=== PATIENT | female | born 1950 | race Caucasian/White ===

== ENCOUNTER → 2021-01-28 | Day surgery (SDC) | payer MEDICARE, BC ==
[2021-01-28 12:33] VITALS: RESP 16; TEMP 98.3
[2021-01-28 13:55] VITALS: BP 162/92; PULSE 60
--- NOTE | 2021-01-28 14:10 | USB ---
EXAMINATION TYPE: US biopsy breast VAD RT, MG diagnostic mammo RT wo CAD DATE OF EXAM: 01/28/2021 CLINICAL HISTORY: R92.8, Abnormal mammogram. Abnormal ultrasound. Bloody discharge. Recent nipple retraction. TECHNIQUE: Ultrasound guided core biopsy of right breast with clip placement and follow-up two-view mammogram. COMPARISON: Prior outside ultrasound and mammogram December 22, 2020. FINDINGS: The procedure of ultrasound guided fine-needle aspiration and/or core biopsy was explained to the patient. Benefits, alternatives, and risks were discussed. An informed consent was then obtained. The patient was placed in supine positioning for imaging and for the procedure. Preprocedure ultrasound fails to show finding seen on outside ultrasound roughly 5 weeks earlier. There is persistent prominent subareolar duct but no peripheral hypervascular oval hypoechoic 1.0 cm lesion or adjacent more irregular hypoechoic 3:00 lesion. The overlying skin was prepped and draped in usual sterile fashion. Lidocaine and used as anesthetic into the skin and subcutaneous tissue. Lidocaine with epinephrine is used as anesthetic into the deeper tissue up to area of concern in the right breast. Under ultrasound guidance, a 18-gauge needle was attempted aspiration was unsuccessful with minimal bloody return. Than a vacuum assisted biopsy gun device was used to obtain 2 core samples. Following this, a biopsy clip was left an area of concern which significantly became less prominent after sampling. The patient tolerated the procedure well without any immediate complication. The patient was kept in the radiology department for short stay after the procedure and then discharged home in stable condition. Postprocedure mammogram confirms successful deployment of clip subareolar region right breast. IMPRESSION: Successful, uncomplicated ultrasound guided core biopsy of area of concern in the right breast, full pathology results to follow. Intermediate index of suspicion noted at time of procedure. Pathology Results: Benign RIGHT BREAST, POSTERIOR NIPPLE 3:00, CORE BIOPSY: Fragmented fibrotic cyst with columnar cell hyperplasia. Recommendation Follow up mammogram of the right breast in 6 months. RADHA
== END ==
LOC: RADUSWWP 11:59
PROVIDERS: ATTEND Surgery
DX: N60.11 Diffuse cystic mastopathy of right breast (principal); R92.8 Other abnormal and inconclusive findings on diagnostic imaging of breast
CPT/HCPCS: 88305; 77065; 19083; A4648; J2001

== ENCOUNTER → 2021-01-28 | Outpatient (CLI) | payer MEDICARE, BC ==
[2021-01-28 12:20] VITALS: BP 153/98; PULSE 51; RESP 12; TEMP 98.3
--- NOTE | 2021-01-28 12:56 | P.GSHP ---
History of Present Illness H&P Date: 01/28/21 Chief Complaint: right breast abnormal ultrasoubrad Munguia is a 70 year old white female seen in consultation for Dr. Blair regarding enlargement of the right breast and firmness fresh state was mastitis. She was treated with antibiotics. The nipple was oozing at that time. The discharge was brown. She did not have any infection or trauma to her breast. She subsequently underwent a bilateral mammogram and ultrasound of the right breast. The mammogram did not reveal any specific changes of concern. The ultrasound revealed a 14 x 13 mm complicated cystic mass with mural thickening and an irregular mural nodule 6 mm in size. Ultrasound core biopsy of the mural nodule on the right was recommended. She does not take any blood thinners. Her breast is returning to normal size at this time. Caffeine: 3 cups coffee/day nicotine: none chocolate: occasional Family History: sister: breast cancer at 65 Hormonal History: menarche: 12 M1 age at first : 18, breast fed: yes menopause: 43 BCP: 2 hormones: none Surgical history: None Medical history: HTN Social History: nicotine: none alcohol: wine cooler in evening drugs: none - Constitutional Comment: hot flashes - EENT Eyes: denies blurred vision, denies pain Ears: deny: decreased hearing, tinnitus Ears, nose, mouth and throat: Denies headache, Denies sore throat - Breasts Breasts: bilateral: as per HPI - Cardiovascular Cardiovascular: Denies chest pain, Denies shortness of breath - Respiratory Respiratory: Denies cough, Denies 7 - Gastrointestinal Gastrointestinal: Denies abdominal pain, Denies diarrhea, Denies nausea, Denies vomiting - Genitourinary (Female) Genitourinary: Denies dysuria, Denies hematuria - Menstruation Menstruation: Reports postmenopausal - Musculoskeletal Comment: arthritis in knees Musculoskeletal: Reports myalgias - Integumentary Integumentary: Denies pruritus, Denies rash - Neurological Neurological: Denies numbness, Denies weakness - Psychiatric Psychiatric: Denies anxiety, Denies depression - Endocrine Endocrine: Denies fatigue, Denies weight change - Hematologic/Lymphatic Comment: none - Allergic/Immunologic Allergic/Immunologic: Reports as per HPI Past Medical History History of Any Multi-Drug Resistant Organisms: None Reported Smoking Status: Never smoker Medications and Allergies Home Medications Medication Instructions Recorded Confirmed Type Aspirin 81 mg PO DAILY 01/19/21 01/28/21 History Losartan [Cozaar] 25 mg PO DAILY 01/19/21 01/28/21 History Allergies Allergy/AdvReac Type Severity Reaction Status Date / Time No Known Allergies Allergy Verified 01/28/21 12:29 Surgical - Exam Vital Signs Temp Pulse Resp BP Pulse Ox 98.3 F 51 L 12 153/98 98 01/28/21 12:01 01/28/21 12:01 01/28/21 12:01 01/28/21 12:01 01/28/21 12:01 BMI 30.9 - General no distress - Eyes normal ocular movement - ENT normal nares - Neck trachea midline - Respiratory normal respiratory effort, clear to auscultation - Cardiovascular Rhythm: regular Heart Sounds: normal: S1, S2 - Abdomen Abdomen: soft - Integumentary normal turgor - Neurologic no disoriented, no combative - Musculoskeletal normal gait - Psychiatric oriented to time, oriented to person, oriented to place, speech is normal, memory intact Breast Exam: BRA: 36D inspection: Right nipple inversion, no left nipple inversion, bilateral grade 2/3 ptosis Palpation: Right breast: Firm mass behind the nipple areolar complex, nipple discharge, otherwise no dominant masses or nodules of concern Nipple discharge at the 3:00 duct is guaiac positive Right axilla: No adenopathy of concern Left breast: Multi-positional exam fibrocystic changes no dominant masses or n odules of concern Left axilla: No adenopathy of concern Results Mammogram and ultrasound reviewed with Dr. Heaton, area of concern and right breast to undergo biopsy Assessment and Plan Assessment: Impression: 1. Hypertension 2. Recent swelling of the right breast with ecchymosis and fullness and nipple inversion, ecchymosis has resolved fullness has improved, abnormal right breast ultrasound 3. Patient does not have any history of any trauma of the breast however the ultrasound is suspicious for hematoma Plan: 1. Right breast ultrasound-guided core biopsy 2. Follow-up after right breast ultrasound core biopsy Cc: Dr. Blair
== END ==
LOC: WWCWWP 11:56
PROVIDERS: ATTEND Surgery
DX: Z53.9 Procedure and treatment not carried out, unspecified reason (principal)

== ENCOUNTER → 2021-05-07 | Outpatient (CLI) | payer MEDICARE, BC ==
[2021-05-07 15:49] VITALS: BP 160/89; PULSE 53; RESP 16; TEMP 98.3
--- NOTE | 2021-05-07 16:03 | P.PN ---
Subjective Progress Note Date: 05/07/21 Principal diagnosis: right nipple inversion Nilda is a 70 year old white female seen in consultation for Dr. Blair regarding enlargement of the right breast and firmness fresh state was mastitis. She was treated with antibiotics. The nipple was oozing at that time. The discharge was brown. She did not have any infection or trauma to her breast. She subsequently underwent a bilateral mammogram and ultrasound of the right breast. The mammogram did not reveal any specific changes of concern. The ultrasound revealed a 14 x 13 mm complicated cystic mass with mural thickening and an irregular mural nodule 6 mm in size. Ultrasound core biopsy of the mural nodule on the right was recommended. She does not take any blood thinners. Her breast is returning to normal size at this time. She had an ultrasound core biopsy of the right breast on [id number]. Pathology revealed fragments of fibrotic cyst and columnar cell hyperplasia. The patient had been exposed to COVID and therefore did not come for results at that time. Her case was reviewed in person with radiologist Dr. Aparicio. He felt that the area of concern had been adequately sampled. The patient is not concerned about any new lumps masses or nodules in either breast. She is not complaining of any nipple discharge. The right nipple complex continues to be inverted but seems to be less so than in the past. It has only been inverted since the biopsy as per the patient. Caffeine: 3 cups coffee/day nicotine: none chocolate: occasional Family History: sister: breast cancer at 65 Hormonal History: menarche: 12 M1 age at first : 18, breast fed: yes menopause: 43 BCP: 2 hormones: none Surgical history: None Medical history: HTN Social History: nicotine: none alcohol: wine cooler in evening drugs: none - Constitutional Comment: hot flashes - EENT Eyes: denies blurred vision, denies pain Ears: deny: decreased hearing, tinnitus Ears, nose, mouth and throat: Denies headache, Denies sore throat - Breasts Breasts: bilateral: as per HPI - Cardiovascular Cardiovascular: Denies chest pain, Denies shortness of breath - Respiratory Respiratory: Denies cough - Gastrointestinal Gastrointestinal: Denies abdominal pain, Denies diarrhea, Denies nausea, Denies vomiting - Genitourinary (Female) Genitourinary: Denies dysuria, Denies hematuria - Menstruation Menstruation: Reports postmenopausal - Musculoskeletal Comment: arthritis in knees Musculoskeletal: Reports myalgias - Integumentary Integumentary: Denies pruritus, Denies rash - Neurological Neurological: Denies numbness, Denies weakness - Psychiatric Psychiatric: Denies anxiety, Denies depression - Endocrine Endocrine: Denies fatigue, Denies weight change - Hematologic/Lymphatic Comment: none - Allergic/Immunologic Allergic/Immunologic: Reports as per HPI Objective - Vital Signs Vital signs: Vital Signs Temp 98.3 F 05/07/21 15:44 Pulse 53 L 05/07/21 15:44 Resp 16 05/07/21 15:44 BP 160/89 05/07/21 15:44 Pulse Ox Intake & Output 05/06/21 05/07/21 05/07/21 18:59 06:59 18:59 Weight 79.379 kg - Exam BMI 30 - Constitutional General appearance: Present: average body habitus - EENT Eyes: Present: EOMI ENT: Present: hearing grossly normal - Neck Neck: Present: normal ROM - Respiratory Respiratory: bilateral: CTA - Cardiovascular Rhythm: regular Heart sounds: normal: S1, S2 - Gastrointestinal General gastrointestinal: Present: soft - Integumentary Integumentary: Present: normal turgor - Musculoskeletal Musculoskeletal: Present: gait normal - Psychiatric Psychiatric: Present: A&O x's 3, appropriate affect, intact judgment & insight - Additional findings Additional findings: Breast Exam: BRA: 38C inspection: Right nipple inversion, bilateral grade 2/3 ptosis Palpation: Right breast: Multiple positional exam fibrocystic changes right nipple inversion appears to be improved; no further nipple discharge, no firm mass behind the nipple areolar complex which is there was noted on prior examination; there does appear to be a slight fullness pulling the nipple and Right axilla: No adenopathy of concern Left breast: Multi-positional exam fibrocystic changes no dominant masses or nodules of concern Left axilla: No adenopathy of concern Assessment and Plan Assessment: Impression: 1. Hypertension 2. Swelling of the right breast with ecchymosis and fullness nipple inversion which has improved ecchymosis has completely resolved and fullness behind the right nipple areolar complex has improved, core biopsy was benign. 3. Patient does not relate any history of trauma but breast however the ultrasound was suspicious for hematoma Plan: Repeat right breast ultrasound in 2 months with physician exam at that time The patient notes any changes will call sooner Cc: Dr. Blair
== END | disposition home or self-care (01) ==
LOC: WWCWWP 15:37
PROVIDERS: ATTEND Surgery
DX: Z53.9 Procedure and treatment not carried out, unspecified reason (principal)

== ENCOUNTER → 2021-08-02 | Outpatient (CLI) | payer MEDICARE, BC ==
--- NOTE | 2021-08-02 13:42 | MM ---
Reason for exam: follow-up at short interval from prior study. Last mammogram was performed 6 months ago. History: Family history of breast cancer in sister at age 63. Benign US biopsy breast VAD RT of the right breast, January 28, 2021. Physical Findings: A clinical breast exam by your physician is recommended on an annual basis and results should be correlated with mammographic findings. MG 3D Diag Mammo W/Cad RT CC and MLO view(s) were taken of the right breast. Prior study comparison: January 28, 2021, right breast MG diagnostic mammo RT wo CAD. There are scattered fibroglandular densities. Previous ultrasound biopsy in the right breast, There is no discrete abnormality. No significant new findings when compared with previous films. Results were given to the patient verbally at the time of the exam. ASSESSMENT: Incomplete: need additional imaging evaluation, BI-RAD 0 RECOMMENDATION: Ultrasound of the right breast.
--- NOTE | 2021-08-02 13:44 | USB ---
Reason for exam: follow-up at short interval from prior study. History: Family history of breast cancer in sister at age 63. Benign US biopsy breast VAD RT of the right breast, January 28, 2021. Physical Findings: A clinical breast exam by your physician is recommended on an annual basis and results should be correlated with mammographic findings. US Breast Limited RT Left limited breast ultrasound including focal area of concern, retroareolar and axilla demonstrates no masses seen, mildly prominent duct. 2-3 o'clock scanned and posterior nipple. Results were given to the patient verbally at the time of the exam. ASSESSMENT: Benign, BI-RAD 2 RECOMMENDATION: Routine screening mammogram of both breasts in 5 months. Back on schedule for December 2021.
== END | disposition home or self-care (01) ==
LOC: RADMAMWWP 12:49
PROVIDERS: ATTEND Surgery
DX: R92.8 Other abnormal and inconclusive findings on diagnostic imaging of breast (principal)
CPT/HCPCS: 77065; 76642; G0279; 77061

== ENCOUNTER → 2021-08-06 | Outpatient (CLI) | payer MEDICARE, BC ==
[2021-08-06 14:46] VITALS: BP 127/84; PULSE 64; RESP 12
--- NOTE | 2021-08-06 15:13 | P.PN ---
Subjective Progress Note Date: 08/06/21 Principal diagnosis: status post right breast core biopsy on 01-28-21; follow up right nipple inversion Nilda is a 71 year old white female seen in consultation for Dr. Blair regarding enlargement of the right breast and firmness fresh state was mastitis. She was treated with antibiotics. The nipple was oozing at that time. The discharge was brown. She did not have any infection or trauma to her breast. She subsequently underwent a bilateral mammogram and ultrasound of the right breast. The mammogram did not reveal any specific changes of concern. The ultrasound revealed a 14 x 13 mm complicated cystic mass with mural thickening and an irregular mural nodule 6 mm in size. Ultrasound core biopsy of the mural nodule on the right was recommended. She does not take any blood thinners. Her breast is returning to normal size at this time. She had an ultrasound core biopsy of the right breast on [id number]. Pathology revealed fragments of fibrotic cyst and columnar cell hyperplasia. The patient had been exposed to COVID and therefore did not come for results at that time. Her case was reviewed in person with radiologist Dr. Aparicio. He felt that the area of concern had been adequately sampled. 08-06-10 The patient is not concerned about any new lumps masses or nodules in either breast. She is not complaining of any nipple discharge. The right nipple complex continues to be inverted but seems to be less so than in the past. It has only been inverted since the biopsy as per the patient. She underwent a right breast mammogram and ultrasound on to the results were benign BIRADS 2 with follow-up screening of both breasts in 5 months. Caffeine: 2 cups coffee/day nicotine: none chocolate: occasional Family History: sister: breast cancer at 65 Hormonal History: menarche: 12 M1 age at first : 18, breast fed: yes menopause: 43 BCP: 2 hormones: none Surgical history: None Medical history: HTN Social History: nicotine: none alcohol: wine cooler in evening drugs: none - Constitutional Comment: hot flashes - EENT Eyes: denies blurred vision, denies pain Ears: deny: decreased hearing, tinnitus Ears, nose, mouth and throat: Denies headache, Denies sore throat - Breasts Breasts: bilateral: as per HPI - Cardiovascular Cardiovascular: Denies chest pain, Denies shortness of breath - Respiratory Respiratory: Denies cough - Gastrointestinal Gastrointestinal: Denies abdominal pain, Denies diarrhea, Denies nausea, Denies vomiting - Genitourinary (Female) Genitourinary: Denies dysuria, Denies hematuria - Menstruation Menstruation: Reports postmenopausal - Musculoskeletal Comment: arthritis in knees Musculoskeletal: Reports myalgias - Integumentary Integumentary: Denies pruritus, Denies rash - Neurological Neurological: Denies numbness, Denies weakness - Psychiatric Psychiatric: Denies anxiety, Denies depression - Endocrine Endocrine: Denies fatigue, Denies weight change - Hematologic/Lymphatic Comment: none - Allergic/Immunologic Allergic/Immunologic: Reports as per HPI Objective - Vital Signs Vital signs: Vital Signs Temp Pulse 64 08/06/21 14:42 Resp 12 08/06/21 14:42 BP 127/84 08/06/21 14:42 Pulse Ox 97 08/06/21 14:42 Intake & Output 08/05/21 08/06/21 08/06/21 18:59 06:59 18:59 Weight 79.379 kg - Exam BMI: 30 - Constitutional General appearance: Present: cooperative - EENT Eyes: Present: EOMI ENT: Present: hearing grossly normal - Neck Neck: Present: normal ROM - Respiratory Respiratory: bilateral: CTA - Cardiovascular Heart sounds: normal: S1, S2 - Integumentary Integumentary: Present: normal turgor - Musculoskeletal Musculoskeletal: Present: gait normal - Psychiatric Psychiatric: Present: A&O x's 3, appropriate affect, intact judgment & insight - Additional findings Additional findings: Breast exam: BRA: 38C inspection: Chronically inverted right nipple, bilateral grade 2/3 ptosis Palpation: Right breast: Multi-positional exam fibrocystic changes no dominant masses or nodules of concern Right axilla: No adenopathy of concern Left breast: Multi-positional exam fibrocystic changes no dominant masses or nodules of concern Left axilla: No adenopathy of concern Assessment and Plan Assessment: Impression: Fibrocystic breast changes A dominant masses or nodules of concern Plan: Bilateral mammogram December with physician exam at that time Patient to call sooner if any questions or concerns CC: Dr. Blair
== END | disposition home or self-care (01) ==
LOC: WWCWWP 14:34
PROVIDERS: ATTEND Surgery
DX: Z53.9 Procedure and treatment not carried out, unspecified reason (principal)

== ENCOUNTER → 2021-12-23 | Outpatient (CLI) | payer MEDICARE, BC ==
--- NOTE | 2021-12-31 17:26 | MM ---
Reason for Exam: Screening (asymptomatic). Last screening mammogram was performed 12 month(s) ago. Patient History: Menarche at age 11. First Full-Term at age 18. Postmenopausal. 01/28/2021, Benign Core Biopsy on the right side. Sister had breast cancer, age 63. Risk Values: [place]rina 5 year model risk: 4.0%. NCI Lifetime model risk: 9.6%. Prior Study Comparison: 04/22/2019 Bilateral MG screening mammo w CAD - 2, [facility]. 12/22/2020 Bilateral MG 3D screening mammo w/cad, [facility]. 01/28/2021 Right Diagnostic Mammogram, [facility]. 08/02/2021 Right Diagnostic Mammogram, [facility]. 08/02/2021 Right Diagnostic Ultrasound, [facility]. Tissue Density: There are scattered fibroglandular densities. Findings: Analyzed By CAD. There is no suspicious group of microcalcifications or new suspicious mass in either breast. Overall Assessment: Negative, BI-RAD 1 Management: Screening Mammogram of both breasts in 1 year. A clinical breast exam by your physician is recommended on an annual basis and results should be correlated with mammographic findings. Electronically signed and approved by: Gray Suggs DO
== END | disposition home or self-care (01) ==
LOC: RADMAMWWP 10:21
PROVIDERS: ATTEND Surgery
DX: Z12.31 Encounter for screening mammogram for malignant neoplasm of breast (principal)
CPT/HCPCS: 77063; 77067

== ENCOUNTER → 2021-12-30 | Outpatient (CLI) | payer MEDICARE, BC ==
[2021-12-30 10:15] VITALS: BP 157/81; PULSE 51; RESP 16; TEMP 97.8
--- NOTE | 2021-12-30 10:40 | P.PN ---
Subjective Progress Note Date: 12/30/21 Principal diagnosis: Fibrocystic breast changes Nilda is a 71 year old white female seen in consultation for Dr. Blair regarding enlargement of the right breast and firmness with a history of mastitis. She was treated with antibiotics. The nipple was oozing at that time . The discharge was brown. She did not have any infection or trauma to her breast. She subsequently underwent a bilateral mammogram and ultrasound of the right breast. The mammogram did not reveal any specific changes of concern. The ultrasound revealed a 14 x 13 mm complicated cystic mass with mural thickening and an irregular mural nodule 6 mm in size. Ultrasound core biopsy of the mural nodule on the right was recommended. Biopsy of this area was done on 01-28-21 which were benign. She had a bilateral mammogram on 12-23-21 the results are still pending although the mammogram have been personally reviewed. It is not complaining of any new lumps masses or nodules of concern in either breast. At this time she is not concerned about any asymmetry of her breasts, and she is not having any nipple losing on either side. Caffeine: 3 cups coffee/day nicotine: none chocolate: occasional Family History: sister: breast cancer at 65 Hormonal History: menarche: 12 M1 age at first : 18, breast fed: yes menopause: 43 BCP: 2 hormones: none Surgical history: None Medical history: HTN Social History: nicotine: none alcohol: wine cooler in evening drugs: none - Constitutional Comment: hot flashes - EENT Eyes: denies blurred vision, denies pain Ears: deny: decreased hearing, tinnitus Ears, nose, mouth and throat: Denies headache, Denies sore throat - Breasts Breasts: bilateral: as per HPI - Cardiovascular Cardiovascular: Denies chest pain, Denies shortness of breath - Respiratory Respiratory: Denies cough - Gastrointestinal Gastrointestinal: Denies abdominal pain, Denies diarrhea, Denies nausea, Denies vomiting - Genitourinary (Female) Genitourinary: Denies dysuria, Denies hematuria - Menstruation Menstruation: Reports postmenopausal - Musculoskeletal Comment: arthritis in knees Musculoskeletal: Reports myalgias - Integumentary Integumentary: Denies pruritus, Denies rash - Neurological Neurological: Denies numbness, Denies weakness - Psychiatric Psychiatric: Denies anxiety, Denies depression - Endocrine Endocrine: Denies fatigue, Denies weight change - Hematologic/Lymphatic Comment: none - Allergic/Immunologic Allergic/Immunologic: Reports as per HPI Past Medical History History of Any Multi-Drug Resistant Organisms: None Reported Smoking Status: Never smoker Medications and Allergies Home Medications Medication Instructions Recorded Confirmed Type Aspirin 81 mg PO DAILY 01/19/21 01/28/21 History Losartan [Cozaar] 25 mg PO DAILY 01/19/21 01/28/21 History Allergies Allergy/AdvReac Type Severity Reaction Status Date / Time No Known Allergies Allergy Verified 01/28/21 12:29 Objective - Vital Signs Vital signs: Vital Signs Temp 97.8 F 12/30/21 10:13 Pulse 51 L 12/30/21 10:13 Resp 16 12/30/21 10:13 BP 157/81 12/30/21 10:13 Pulse Ox 97 12/30/21 10:13 FiO2 Intake & Output 12/29/21 12/30/21 12/30/21 18:59 06:59 18:59 Weight 79.379 kg - Exam BMI: 30 - Constitutional General appearance: Present: cooperative - EENT Eyes: Present: edentulous ENT: Present: hearing grossly normal - Neck Neck: Present: normal ROM - Respiratory Respiratory: bilateral: CTA - Cardiovascular Rhythm: regular Heart sounds: normal: S1, S2 - Gastrointestinal General gastrointestinal: Present: soft - Integumentary Integumentary: Present: normal turgor - Musculoskeletal Musculoskeletal: Present: gait normal - Psychiatric Psychiatric: Present: A&O x's 3, appropriate affect, intact judgment & insight - Additional findings Additional findings: Breaset Exam: BRA: 36C Inspection: Inversion of the right nipple which has been like that since she had core biopsy of the right side, bilateral grade 2/3 ptosis Palpation: Right breast: Multiple positional exam fibrocystic changes no dominant masses or nodules of concern, mild inversion of the right nipple which has been present since core biopsy of the right breast Right axilla: No adenopathy of concern Left breast: Multi-positional exam fibrocystic changes no dominant masses or nodules of concern Left axilla: No adenopathy of concern Assessment and Plan Assessment: Impression: Fibrocystic breast changes Chronic inversion of the right nipple following right breast biopsy Plan: Awaiting official mammogram interpretation by radiology, final recommendation to follow this Cc: Milan Blair NP
== END | disposition home or self-care (01) ==
LOC: WWCWWP 10:04
PROVIDERS: ATTEND Surgery
DX: Z53.9 Procedure and treatment not carried out, unspecified reason (principal)

== ENCOUNTER → 2023-01-16 | Outpatient (CLI) | payer MEDICARE, BC ==
[2023-01-16 14:45] LABS: INR 0.9 (<1.2); Partial Thromboplastin Time 24.2 sec (22.0-30.0)
[2023-01-16 20:16] LABS: Appearance,Urine Clear (Clear); Bilirubin,Urine Negative (Negative); Blood,Urine Negative (Negative); Color,Urine Yellow (Yellow); Ketones,Urine Negative (Negative); Nitrite,Urine Negative (Negative); PH, Urine 6.5; Specific Gravity,Urine 1.014 (1.001-1.030); Urobilinogen,Urine 0.2 E.U./DL
[2023-01-16 20:26] LABS: Bacteria,Urine None Seen (None Seen)
[2023-01-16 21:30] LABS: ALT 27 U/L (8-44); AST 17 U/L (13-35); Albumin 4.1 d/dL (3.8-4.9); Albumin/Globulin Ratio 1.95 Ratio (1.60-3.17); Alkaline Phosphatase 90 U/L (41-126); BUN/Creat Ratio 22.75 Ratio (12.00-20.00); Blood Urea Nitrogen 18.2 mg/dL (9.0-27.0); Calcium 12.4 mg/dL (8.7-10.3); Carbon Dioxide 29.4 mmol/L (21.6-31.8); Chloride 108 mmol/L (96-109); Globulin 2.1 d/dL (1.6-3.3); Glucose 126 mg/dL (70-110); Potassium 4.5 mmol/L (3.5-5.5); Sodium 145 mmol/L (135-145); Total Bilirubin 0.3 mg/dL (0.3-1.2); Total Protein 6.2 d/dL (6.2-8.2)
[2023-01-16 22:26] LABS: HCT 44.4 % (37.2-46.3); HGB 13.7 d/dL (12.0-15.0); MCH 28.7 pg (27.0-32.0); MCHC 30.9 d/dL (32.0-37.0); MCV 92.9 FL (80.0-97.0); Mean Platelet Volume 12.3 FL (9.5-12.2); NRBC Per 100 WBC 0 X 10*3/uL (0.00-0.01); Platelet Count 300 X 10*3/uL (140-440); RBC 4.78 X 10*6/uL (4.10-5.20); RDW 13.4 % (11.5-14.5); WBC 7.03 X 10*3/uL (4.50-10.00)
== END | disposition home or self-care (01) ==
LOC: LABPAT 09:40
PROVIDERS: ATTEND Orthopaedic Surgery
DX: Z01.812 Encounter for preprocedural laboratory examination (principal); M17.0 Bilateral primary osteoarthritis of knee; I51.7 Cardiomegaly; R94.31 Abnormal electrocardiogram [ECG] [EKG]
CPT/HCPCS: 80053; 81001; 85027; 85610; 85730; 87070; 93005

== ENCOUNTER 2023-02-08 10:40 | Day surgery (SDC) | payer MEDICARE, BC ==
[~2023-02-08 10:40] MED LIST: ACETAMINOPHEN TAB 500 MG TAB PO PRN; DEXAMETHASONE SOD PHOSPHATE 10 MG/ML 1 ML VIAL IV PRN; DEXAMETHASONE SOD PHOSPHATE 4 MG/ML 1 ML VIAL IV ONE; DOCUSATE 100 MG CAP PO PRN; FAMOTIDINE 20 MG/2 ML VIAL IVP PRN; HYDROmorphone 0.5 MG/0.5 ML SYRINGE IVP PRN; KETOROLAC 15 MG/ML 1 ML VIAL IVP PRN; LIDOCAINE 1% (10MG/ML) FOR IV START INTRADERMA PRN; MIDAZOLAM 2 MG/2 ML VIAL IV PRN; ONDANSETRON 4 MG/2 ML VIAL IVP ONE; ONDANSETRON 4 MG/2 ML VIAL IVP PRN; ROPIVACAINE/EPI/CLONIDINE/KET 50 ML SYRINGE MISCELLANE PRN; TRANEXAMIC 1,000 MG/100ML-NACL 1,000 MG in SALINE 1 100ML.BAG IV PRN; TRANEXAMIC 1,000 MG/100ML-NACL 1,000 MG in SALINE 1 100ML.BAG IVPB PRN; oxyCODONE ER 10 MG TAB.ER.12H PO PRN
[2023-02-08] MEDS: LACTATED RINGERS 1,000 ML IV SCH ×3 (12:19→16:59)
--- NOTE | 2023-02-08 12:22 | P.ANPRN ---
Procedure Note - Anesthesia - Nerve Block Performed Right Adductor Canal Single Time Out Performed: Yes (115) Date of Procedure: 02/08/23 Procedure Start Time: 12:00 Procedure Stop Time: 12:10 Location of Patient: PreOp Indication: Acute Post-Operative Pain, Requested by Surgeon Sedation Type: Sedate with meaningful contact maintained Preparation: Sterile Prep Position: Supine Catheter: None Needle Types: Pajunk Needle Gauge: 21 Ultrasound used to visualize needle placement: Yes Ultrasound used to observe medication spread: Yes Injectate: 0.5% Ropivacaine (see comment for volume) (21 mL of block solution containing 10 ML of 0.5% ropivacaine mixed with 10 ML of preservative-free normal saline, and 4 MG of dexamethasone) Blood Aspirated: No Pain Paresthesia on Injection Noted: No Resistance on Injection: Normal Image Stored and Saved: Yes Events: Uneventful and Well Tolerated Right iPack Single Time Out Performed: Yes (115) Date of Procedure: 02/08/23 Procedure Start Time: 12:00 Procedure Stop Time: 12:10 Location of Patient: PreOp Indication: Acute Post-Operative Pain, Requested by Surgeon Sedation Type: Sedate with meaningful contact maintained Preparation: Sterile Prep Position: Supine Catheter: None Needle Types: Pajunk Needle Gauge: 21 Ultrasound used to visualize needle placement: Yes Ultrasound used to observe medication spread: Yes Injectate: 0.5% Ropivacaine (see comment for volume) (20 mL of block solution containing 10 ML of 0.5% ropivacaine mixed with 10 ML of preservative-free normal saline) Blood Aspirated: No Pain Paresthesia on Injection Noted: No Resistance on Injection: Normal Image Stored and Saved: Yes Events: Uneventful and Well Tolerated
[2023-02-08] MEDS ORDERED: LACTATED RINGERS 1,000 ML IV ONE (14:20)
--- NOTE | 2023-02-08 14:27 | P.OP ---
Date of Procedure: 02/08/23 Preoperative Diagnosis: 1. Severe right knee osteoarthritis Postoperative Diagnosis: Same Procedure(s) Performed: 1. Right total knee arthroplasty 2. Computer assisted musculoskeletal navigation using CT/MRI images Implants: 1. Vinay Triathlon CR Femur Size #4 2. Kuna Triathlon Tyler Tibial Base Size #4 3. Kuna Triathlon CS poly Size #4, 9-mm 4. Kuna Triathlon all poly patella, Size #29 Anesthesia: regional, spinal Surgeon: George Saavedra Cleaner Wall #1: Bette Talbert Estimated Blood Loss (ml): 100 IV fluids (ml): 850 Pathology: none sent Condition: stable Disposition: PACU Indications for Procedure: I met with the patient preoperatively in the office setting and discussed treatment of their symptomatic knee arthritis. They failed a long course of nonsurgical treatment and elected to proceed with an elective total knee replacement. I discussed the potential risks and complications at length and gave them ample time to ask questions. Risks discussed included: risks from anesthesia, superficial site surgical infection, acute and/or chronic periprosthetic joint infection, delayed wound healing, drainage, wound necrosis, instability, stiffness, stiffness requiring manipulation and/or revision surgery, damage to local blood vessels or nerves, aseptic loosening of the implants, extensor mechanism issues including disruption, patellar maltracking, avascular necrosis etc., continued or worsened knee pain, generalized dissatisfaction with surgical outcome, need for revision surgery, an inability to regain preinjury level of function, DVT, PE, other medical complications, and possibly loss of life or limb. The patient voiced their understanding that while these are the most common complications other less common complications are possible. They provided both their verbal and written consent to go forward with surgery. Operative Findings: Severe tricompartmental knee osteoarthritis Description of Procedure: The patient was identified in preoperative holding and the correct operative extremity was verified and marked with a marker. I reviewed the consent form with the patient at length. All of their questions were answered. The patient was given a block by anesthesia. They were then brought back to the operating room. They were transferred onto the operating room table where a general anest hetic, preoperative antibiotics, and tranexamic acid were administered by anesthesia. A tourniquet was applied to the proximal aspect of the operative extremity. The contralateral extremity was padded under the heel and secured to the operating room table with a nonsterile blue towel and tape. The ipsilateral arm was carefully draped across the patient's chest and secured with a pillow and foam. A post was applied over the lateral aspect of the ipsilateral thigh and a bolster was placed under the ipsilateral foot. I verified that the operative extremity was stable and the knee was flexed to 90. The operative extremity was then placed in a leg daniel, nonsterile drapes were applied, and the extremity was prepped and draped sterilely in the standard sterile fashion. Prior to starting surgery timeout was performed identifying the correct patient, operative extremity, and procedure. The leg was then elevated, exsanguinated with an Esmarch bandage, and the tourniquet was inflated. An anterior midline incision was made sharply with a scalpel. Once I had dissected deep to the superficial fascial layer medial and lateral flaps were elevated. A medial parapatellar arthrotomy was created. Upon opening the knee joint there were diffuse arthritic changes in all 3 compartments. The anterior horn of the medial meniscus were sharply released and a medial release was performed around the posterior medial corner of the knee to facilitate retractor placement. The fat pad was excised with electrocautery. The patella was found to be severely arthritic and a provisional cut was made with a sagittal saw to facilitate mobilization of the extensor mechanism during the procedure. Remnants of the ACL and PCL were then excised from the notch. 4 mm pins were then placed within the incision in the medial distal femur and proximal tibia. Arrays were applied to the pins and I verified they were completely tightened. The knee was then registered with the Circadence robot and manipulations in implant position were made to balance the knee and opitmize implant position. Using the Anand robotic saw all cuts were made in accordance with our plan. After all bony fragments had been removed the cuts were verified with the planar probe. The tibia was then subluxed forward and sized. The knee was brought into flexion and a lamina razor grinder was placed to allow removal of the meniscal remnants both medially and laterally as well as posterior osteophytes. Local anesthetic was then infiltrated around the joint capsule. Trial implants were then placed within the knee. Range of motion and collateral ligament tension was then evaluated. Adjustments in implant size and position were then made accordingly. Once the knee was felt to be appropriately balanced the Anand pins were removed. The patella was then recut, sized, and punched. A trial patellar button was then placed. With the trial components in place, the patella tracked midline. The femur was then drilled and the trial component removed. The trial tibial component was then appropriately rotated, pinned, and prepared for the keel. All trial components were then removed from the knee. The knee was thoroughly i rrigated with pulsatile lavage. Cement was prepared via vacuum mixing in a bowl on the back table. I then hand pressurized cement into the femur and tibia and placed the implants beginning with the tibial base tray and poly liner, femoral component, and finally the patellar button. All extruded cement was removed including from the pin sites. Once the cement had hardened the knee was evaluated one final time with the final polyethylene liner in place. The knee had full extension and flexion and felt stable to varus and valgus stress throughout the arc of motion. The tourniquet was released and with the tourniquet down the patella tracked midline. All bleeders were controlled with electrocautery. The knee was then soaked for 3 minutes with a dilute Betadine soak. The knee was thoroughly irrigated using 3 L of sterile saline and pulsatile lavage. A deep drain was placed. The extensor mechanism was then reapproximated using pop off Vicryl sutures followed by a running barbed suture. The knee was then closed in layers with a 0 strata fix for the deep fascial layer, 2-0 strata fix for the superficial subcutaneous layer and Monocryl and Steri-Strips for the skin. A sterile dressing and drain sponge were applied. I verified that all instrument, sponge, and sharp counts were correct. The patient was then transferred off the operating room table, extubated, and brought to recovery having tolerated the procedure well. Bette Talbert PA-C was required as a skilled assistant branch operations manager due to the complexity of the procedure for patient positioning, draping, retraction, placement of hardware, and closure of wound. PLAN: The patient can weight-bear as tolerated on the operative extremity. DVT prophylaxis with aspirin 81 mg twice a day based on preoperative risk stratification. Follow-up in the office in 2 weeks for wound check and x-rays of the knee including an AP and lateral.
[2023-02-08] MEDS ORDERED: HYDROmorphone 0.5 MG/0.5 ML SYRINGE IVP PRN ×2 (14:45)
[2023-02-08] MEDS ORDERED: hydrOXYzine pamoate 25 MG CAP PO PRN (14:45)
[2023-02-08] MEDS ORDERED: NALOXONE 0.4 MG/ML 1 ML VIAL IV PRN (14:45)
--- NOTE | 2023-02-08 15:15 | XR ---
EXAMINATION TYPE: XR knee limited RT DATE OF EXAM: 02/08/2023 CLINICAL HISTORY: Postoperative evaluation Two views of the right knee are submitted. Identified are changes of total knee arthroplasty with femoral and tibial components appearing well seated. Postsurgical soft tissue changes are noted. Alignment is anatomic.
[2023-02-08] MEDS: HYDROcodone/APAP 5-325MG 1 EACH TAB PO PRN (16:55)
[2023-02-08] MEDS: ONDANSETRON 4 MG/2 ML VIAL IVP PRN (16:57)
[2023-02-08] MEDS: ASPIRIN 81 MG PO SCH (20:09)
[2023-02-08] MEDS: SENNOSIDES-DOCUSATE SODIUM 1 EACH TAB PO SCH (20:09)
--- NOTE | 2023-02-09 00:44 | P.CONS ---
History of Present Illness - Reason for Consult Consult date: 02/08/23 - History of Present Illness Patient is a 72-year-old female with a PMH of hypertension who was admitted for an elective right total knee replacement. The patient underwent the procedure earlier today and was seen postoperatively on surgical unit. She reported ongoing pain at the time of interview, rated at a 5 out of 10 of the right knee. She denies experiencing chest discomfort, shortness of breath, fever, chills, cough, abdominal pain, or diarrhea. She did report mild nausea with a single episode of vomiting earlier tonight. Review of systems: Pertinent positives and negatives as discussed in HPI, a complete review of systems was performed and all other systems are negative. Physical examination: Vital signs reviewed General: non toxic, no distress, appears at stated age, normal weight Derm: no unusual rashes/lesions, warm Head: atraumatic, normocephalic, symmetric Eyes: EOMI, no lid lag, anicteric sclera, pupils equal round reactive to light ENT: Nose and ears atraumatic Neck: No cervical lymphadenopathy, trachea midline, supple Mouth: no lip lesion, mucus membranes moist Cardiovascular: S1S2 reg, no murmur, positive dorsalis pedis pulse bilateral, no edema Lungs: CTA bilateral, no rhonchi, no rales, no accessory muscle use Abdominal: soft, nontender to palpation, no guarding Ext: muscle strength 5 out of 5 in all 4 extremities grossly except for right lower extremity postsurgically, right knee drain in place, no gross muscle atrophy, no contractures, right lower extremity distal strength 5 out of 5 Neuro: CN II-XI grossly intact, no gross focal neuro deficits Psych: Alert, oriented, appropriate affect Assessment: Chronic conditions: Hypertension Status post right total knee replacement Plan: Continue with home losartan dose Defer management of pain control and DVT prophylaxis to primary surgery service We appreciate this opportunity to be involved in this patient's care. We will follow the patient with you. For any further questions, please not hesitate to contact the [facility] inpatient team. Past Medical History Past Medical History: Hypertension, Osteoarthritis (OA) Additional Past Medical History / Comment(s): R knee fracture/casted in 2017 History of Any Multi-Drug Resistant Organisms: None Reported Past Surgical History: Orthopedic Surgery Additional Past Surgical History / Comment(s): D&C 1970 Past Anesthesia/Blood Transfusion Reactions: No Reported Reaction Smoking Status: Never smoker - Past Family History Father Family Medical History: No Reported History Mother Family Medical History: CVA/TIA, Osteoarthritis (OA) Medications and Allergies Home Medications Medication Instructions Recorded Confirmed Type Losartan [Cozaar] 25 mg PO QAM 01/19/21 02/02/23 History Multivitamins, Thera [Multivitamin 1 tab PO QAM 05/07/21 02/02/23 History (formulary)] Acetaminophen [Tylenol Extra 500 mg PO Q6H PRN 02/02/23 02/02/23 History Strength] Ibuprofen [Motrin Ib] 200 mg PO Q8H PRN 02/02/23 02/02/23 History Allergies Allergy/AdvReac Type Severity Reaction Status Date / Time No Known Allergies Allergy Verified 02/08/23 11:23 Physical Exam Vitals: Vital Signs Temp Pulse Pulse Resp BP BP Pulse Ox 02/08/23 19:09 97.6 F 58 L 18 123/77 96 02/08/23 17:48 56 L 120/69 98 02/08/23 17:33 62 127/75 99 02/08/23 17:18 57 L 149/66 98 02/08/23 17:03 60 146/76 97 02/08/23 16:48 60 157/82 97 02/08/23 16:35 68 149/89 97 02/08/23 16:00 53 L 18 144/77 97 02/08/23 15:30 60 16 128/66 97 02/08/23 15:13 56 L 16 131/66 98 02/08/23 14:59 60 16 121/66 95 02/08/23 14:54 59 L 16 113/69 95 02/08/23 14:39 97 F L 58 L 16 129/62 95 02/08/23 12:17 56 L 16 146/70 99 02/08/23 11:30 97.7 F 63 16 164/83 97 Intake and Output 02/08/23 02/08/23 02/09/23 14:59 22:59 06:59 Intake Total 1250 200 Output Total 100 450 Balance 1150 -250 Intake: IV 1250 Oral 200 Output: Drainage 100 Right Lower Knee 100 Urine 350 Estimated Blood Loss 100 Other: Voiding Method Bedside Commode # Voids 1 Weight 75.8 kg 75.8 kg
[2023-02-09] MEDS: LACTATED RINGERS 1,000 ML IV SCH ×3 (01:00→21:49)
[2023-02-09] MEDS: HYDROmorphone 0.5 MG/0.5 ML SYRINGE IVP PRN ×2 (03:59→14:07)
[2023-02-09] MEDS: HYDROcodone/APAP 5-325MG 1 EACH TAB PO PRN ×3 (06:19→20:54)
[2023-02-09] MEDS: ONDANSETRON 4 MG/2 ML VIAL IVP PRN ×2 (08:15→14:03)
[2023-02-09] MEDS: ASPIRIN 81 MG PO SCH ×2 (08:17→20:55)
[2023-02-09] MEDS: LOSARTAN 25 MG TAB PO SCH (08:17)
[2023-02-09] MEDS ORDERED: PROCHLORPERAZINE INJ 10 MG/2 ML VIAL IVP PRN (08:38)
[2023-02-09 09:06] LABS: Basophils # (A) 0.01 X 10*3/uL (0.00-0.10); Basophils % (A) 0.1 %; Eosinophils # (A) 0 X 10*3/uL (0.04-0.35); Eosinophils % (A) 0 %; HCT 36.2 % (37.2-46.3); HGB 11.5 d/dL (12.0-15.0); Lymphocytes # (A) 1.14 X 10*3/uL (0.90-5.00); Lymphocytes % (A) 7.3 %; MCH 28.5 pg (27.0-32.0); MCHC 31.8 d/dL (32.0-37.0); MCV 89.8 FL (80.0-97.0); Mean Platelet Volume 11.6 FL (9.5-12.2); Monocytes # (A) 1.39 X 10*3/uL (0.20-1.00); Monocytes % (A) 8.9 %; NRBC Per 100 WBC 0 X 10*3/uL (0.00-0.01); Neutrophils # (A) 13.06 X 10*3/uL (1.80-7.70); Neutrophils % (A) 83.1 %; Platelet Count 233 X 10*3/uL (140-440); RBC 4.03 X 10*6/uL (4.10-5.20); RDW 13.8 % (11.5-14.5)
[2023-02-09] MEDS ORDERED: FAMOTIDINE 20 MG/2 ML VIAL IV SCH (10:30)
--- NOTE | 2023-02-09 11:53 | P.DS ---
Providers Expected date of discharge: 02/09/23 Attending physician: George Saavedra Consults: 02/08/23 14:45 Consult Physician Routine Consulting Provider: Cora Harrell Consult Reason/Comments: medical management Do you want consulting provider notified?: Yes Primary care physician: Ponce Bae [facility] Course: This is a 72-year-old female who has been followed in our office by Dr. Saavedra for continued complaints of right knee pain due to right knee osteoarthritis. Treatment options were discussed, and patient elected to undergo a right total knee arthroplasty. Patient was seen pre-operatively by Milan Blair NP and cleared for surgery. Patient underwent a right total knee arthroplasty on 02/08/[address] Saavedra. The procedure was performed without complication or sequelae. The patient is doing fairly well postoperatively. Vital signs and labs are stable on postoperative day #1. Patient was examined bedside this morning with Dr. Saavedra. Patient states she is overall doing well and the pain in her knee is well-controlled. She has been ambulating with a walker with minimal assistance. Patient will work with physical therapy before returning home. She has been experiencing nausea and vomiting post-op, and additional anti-emetics were ordered. Patient is comfortable being discharged home today. Patient has no new complaints this morning. On examination, the patient is sitting up in bed in no apparent distress. She is alert and orientated 3. On inspection of the right knee, there is a clean, dry, intact surgical dressing in place with no bleeding or drainage through the dressing. Patient has good strength and ROM of the right ankle and toes. Motor and sensory function is intact of the right lower extremity. The dorsalis pedis pulse is easily palpable, the right lower extremity is warm and well perfused with brisk capillary refill. Calf is soft and non-tender to palpation. Hemovac drain removed bedside this morning during examination. Patient is discharged home with home health care today in good condition, pending medical clearance. Patient will follow-up in the office at [facility] in 2 weeks. Please see med rec for accurate list of discharge medication. Plan - Discharge Summary Discharge Rx Participant: Yes New Discharge Prescriptions: New HYDROcodone/APAP 5-325MG [[place] 5-325] 1 - 2 tab PO Q6HR PRN 7 Days #32 tab PRN Reason: Pain Diclofenac Sodium [Voltaren] 75 mg PO BID 30 Days #60 tab Ondansetron Odt [Zofran Odt] 4 mg PO Q8HR PRN #10 tab PRN Reason: Nausea Aspirin 81 mg PO BID 30 Days #60 tab Docusate [Colace] 100 mg PO BID #60 capsule Omeprazole 40 mg PO DAILY 30 Days #30 cap No Action Ibuprofen [Motrin Ib] 200 mg PO Q8H PRN PRN Reason: Pain Losartan [Cozaar] 25 mg PO QAM Multivitamins, Thera [Multivitamin (formulary)] 1 tab PO QAM Acetaminophen [Tylenol Extra Strength] 500 mg PO Q6H PRN PRN Reason: Pain Discharge Medication List Losartan [Cozaar] 25 mg PO QAM 01/19/21 [History] Multivitamins, Thera [Multivitamin (formulary)] 1 tab PO QAM 05/07/21 [History] Acetaminophen [Tylenol Extra Strength] 500 mg PO Q6H PRN 02/02/23 [History] Ibuprofen [Motrin Ib] 200 mg PO Q8H PRN 02/02/23 [History] Aspirin 81 mg PO BID 30 Days #60 tab 02/09/23 [Rx] Diclofenac Sodium [Voltaren] 75 mg PO BID 30 Days #60 tab 02/09/23 [Rx] Docusate [Colace] 100 mg PO BID #60 capsule 02/09/23 [Rx] HYDROcodone/APAP 5-325MG [[place] 5-325] 1 - 2 tab PO Q6HR PRN 7 Days #32 tab 02/09/23 [Rx] Omeprazole 40 mg PO DAILY 30 Days #30 cap 02/09/23 [Rx] Ondansetron Odt [Zofran Odt] 4 mg PO Q8HR PRN #10 tab 02/09/23 [Rx] Follow up Appointment(s)/Referral(s): George Saavedra MD [Medical Doctor] - 2 Weeks Activity/Diet/Wound Care/Special Instructions: Weight bear to tolerance on operative extremity with a walker. Keep operative dressing in place until follow-up appointment in the office. Call the office if dressing becomes saturated or falls off. May shower over dressing. Take pain medication as prescribed. Take aspirin 81mg twice a day x 4 weeks for blood clot prevention. Follow-up in the office in two weeks at [facility]. Call the office with any questions or concerns, Discharge Disposition: HOME WITH HOME HEALTH SERVICES
[2023-02-09] MEDS: ACETAMINOPHEN TAB 500 MG TAB PO PRN (13:54)
--- NOTE | 2023-02-09 18:30 | P.PN ---
Subjective Progress Note Date: 02/09/23 (delayed charting seen at approx 1055) Patient is a 72-year-old female with hypertension who presented for elective right total knee arthroplasty. Her hospital course has been complicated by nausea and vomiting. Patient seen and examined at bedside. She is an exceedingly nauseated today. She did take some [place] on an empty stomach. She tried some Zofran but continues to have nausea is worse when she is sitting up. We discussed the plan of Tylenol Tylenol seventh [place] as IV pain meds typically making him nauseated as well. We discussed the addition of Compazine. I also told her it is important to eat something to get a diner stomach and that we would try an antacid to see if it'll help. Vital signs reviewed General: nontoxic, no distress, appears at stated age Cardiovascular: S1S2 reg, no murmur, positive posterior tibial pulse bilateral, Lungs: CTA bilateral, no rhonchi, no rales , no accessory muscle use Abdominal: soft, nontender to palpation, no guarding, no appreciable organomegaly Ext: no gross muscle atrophy, no edema b/l lower extremities, no contractures Neuro: CN II-XI grossly intact, no focal neuro deficits Psych: Alert, oriented, appropriate affect Assessment/Plan: Patient is a 72-year-old female status post right TKA. Intractable nausea and vomiting. Suspect secondary to pain medications and an esthesia -Continue with Zofran 4 mg IV every 8 hours as needed for nausea and vomiting, Compazine 5 mg IV push every 4 hours when necessary nausea and vomiting -Pepcid 20 mg IV push 1 now -Encourage patient to try some saltines -Added Tylenol thousand milligrams every 6 hours for pain Hypertension, controlled -Continue with Cozaar 25 mg daily Data Review: CBC reviewed and remarkable for white blood cell count 15.7, hemoglobin 11.5 Thank you for allowing us to participate in the care of this pleasant patient. Do not hesitate to contact us with questions. Someone can be reached from the [facility] hospitalist group all hours of the day at [phone] or via perfect serve. This dictation was prepared using [employer] voice recognition software. Though every attempt is made to correct errors during dictation some may still exist. Objective - Vital Signs Vital signs: Vital Signs Temp 98.1 F 02/09/23 14:00 Pulse 78 02/09/23 14:00 Resp 19 02/09/23 14:00 BP 118/76 02/09/23 14:00 Pulse Ox 95 02/09/23 14:00 FiO2 Intake & Output 02/08/23 02/09/23 02/09/23 18:59 06:59 18:59 Intake Total 1450 Output Total 100 880 Balance 1350 -880 Weight 75.8 kg Intake: IV 1250 Oral 200 Output: Drainage 230 Right Lower Knee 230 Urine 650 Estimated Blood Loss 100 Other: Voiding Method Bedside Commode Bedside Commode # Voids 1 1 - Labs CBC & Chem 7: 02/09/23 06:00 Labs: Abnormal Lab Results - Last 24 Hours (Table) 02/09/23 Range/Units 06:00 WBC 15.70 H (4.50-10.00) X 10*3/uL RBC 4.03 L (4.10-5.20) X 10*6/uL Hgb 11.5 L (12.0-15.0) d/dL Hct 36.2 L (37.2-46.3) % MCHC 31.8 L (32.0-37.0) d/dL Neutrophils # 13.06 H (1.80-7.70) X 10*3/uL Monocytes # 1.39 H (0.20-1.00) X 10*3/uL Eosinophils # 0 L (0.04-0.35) X 10*3/uL
[2023-02-09] MEDS: SENNOSIDES-DOCUSATE SODIUM 1 EACH TAB PO SCH (20:55)
[2023-02-10] MEDS: HYDROcodone/APAP 5-325MG 1 EACH TAB PO PRN ×2 (01:56→07:33)
[2023-02-10] MEDS: ACETAMINOPHEN TAB 500 MG TAB PO PRN (04:20)
[2023-02-10] MEDS: ASPIRIN 81 MG PO SCH (07:33)
[2023-02-10] MEDS: LOSARTAN 25 MG TAB PO SCH (07:33)
[2023-02-10 07:40] VITALS: BP 138/70; PULSE 70; RESP 16; TEMP 99
--- NOTE | 2023-02-10 11:07 | P.PN ---
Subjective Progress Note Date: 02/10/23 This patient is a 72- year old female who is status-post right total knee arthroplasty on 02/08/23. She initially planned to discharge yesterday although she was experiencing nausea and vomiting, therefore discharge was held. Today is postoperative day #2. Patient is examined bedside this morning with Dr. Saavedra. She is up to the bedside chair. She states her nausea has resolved. She is doing well this morning and would like to return home. No new complaints. Objective - Vital Signs Vital signs: Vital Signs Temp 99.0 F 02/10/23 07:00 Pulse 70 02/10/23 07:34 Resp 16 02/10/23 07:34 BP 138/70 02/10/23 07:00 Pulse Ox 92 L 02/10/23 07:00 FiO2 Intake & Output 02/09/23 02/10/23 02/10/23 18:59 06:59 18:59 Other: Voiding Method Bedside Commode Bedside Commode # Voids 2 1 1 - Exam On examination, the patient is sitting up in the bedside chair in no apparent distress. She is alert and oriented 3. On inspection of the right knee, there is a clean, dry, and intact surgical dressing in place and no bleeding or drainage through the dressing. There is mild swelling of the knee. Motor and sensory function is intact of the right lower extremity. The right lower extremity is warm and well-perfused. Calf is soft and nontender to palpation. - Labs CBC & Chem 7: 02/09/23 06:00 Assessment and Plan Assessment: Status post right total knee arthroplasty on 02/08/23. Postoperative day #2. Plan: - Patient will be discharged home with home physical therapy today, pending medical clearance. Please see discharge orders. She should follow-up in the office in 2 weeks at [facility].
--- NOTE | 2023-02-10 19:59 | P.PN ---
Subjective Progress Note Date: 02/10/23 (delayed charting seen at 1055) Patient is a 72-year-old female with hypertension who presented for elective right total knee arthroplasty. Her hospital course has been complicated by jay sea and vomiting. Patient seen and examined at bedside. Nausea and vomiting resolved. Tolerating her diet well. Pain well-controlled. Wants to go home. Does not struggle with constipation typically. We discussed that she should take a stool softener as long she is requiring narcotic pain medications. Vital signs reviewed General: nontoxic, no distress, appears at stated age Cardiovascular: S1S2 reg, no murmur, positive posterior tibial pulse bilateral, Lungs: CTA bilateral, no rhonchi, no rales , no accessory muscle use Abdominal: soft, nontender to palpation, no guarding, no appreciable organomegaly Ext: no gross muscle atrophy, no edema b/l lower extremities, no contractures Neuro: CN II-XI grossly intact, no focal neuro deficits Psych: Alert, oriented, appropriate affect Assessment/Plan: Patient is a 72-year-old female status post right TKA. Intractable nausea and vomiting. Suspect secondary to pain medications and anesthesia, resolved -Continue with Zofran 4 mg IV every 8 hours as needed for nausea and vomiting Hypertension, controlled -Continue with Cozaar 25 mg daily - Home med recs addressed - medically optimized for discharge at the discretion of ortho Thank you for allowing us to participate in the care of this pleasant patient. Do not hesitate to contact us with questions. Someone can be reached from the [facility] hospitalist group all hours of the day at [phone] or via [employer]. This dictation was prepared using [employer] voice recognition software. Though every attempt is made to correct errors during dictation some may still exist. Objective - Vital Signs Vital signs: Vital Signs Temp 99.0 F 02/10/23 07:00 Pulse 70 02/10/23 07:34 Resp 16 02/10/23 07:34 BP 138/70 02/10/23 07:00 Pulse Ox 92 L 02/10/23 07:00 FiO2 Intake & Output 02/10/23 02/10/23 02/11/23 06:59 18:59 06:59 Other: Voiding Method Bedside Commode # Voids 1 1 - Labs CBC & Chem 7: 02/09/23 06:00
== END 2023-02-10 12:58 | disposition home health service (06) ==
LOC: OR 10:40 → 4SSUR 14:35 → OR 02-10 12:58
PROVIDERS: ATTEND Orthopaedic Surgery
DX: M17.11 Unilateral primary osteoarthritis, right knee (principal); G89.18 Other acute postprocedural pain; I10 Essential (primary) hypertension; Z96.651 Presence of right artificial knee joint; Z98.890 Other specified postprocedural states; Z79.899 Other long term (current) drug therapy; Z82.3 Family history of stroke; Z82.61 Family history of arthritis
CPT/HCPCS: 0055T; 27447; 64447; 64999; 85025

== ENCOUNTER → 2023-05-03 | Outpatient (CLI) | payer MEDICARE, BC ==
--- NOTE | 2023-05-03 12:18 | CT ---
EXAMINATION TYPE: CT left knee - AURELIO Protocol CT DLP: 758 mGycm, Automated exposure control for dose reduction was used. DATE OF EXAM: 05/03/2023 11:41 AM COMPARISON: Extremity radiograph 02/08/2023. CLINICAL INDICATION:Female, 72 years old with history of M25.562 PAIN IN LEFT KNEE; PHH, left aurelio kn ee TECHNIQUE: Axial images were obtained of the CT left knee - AURELIO Protocol, Additional coronal and sag ittal reformatted images and soft tissue and bone window were obtained for review. Contrast used: mL of , (None if empty) Oral contrast used: (None if empty) FINDINGS: The visualized portion of the hips demonstrate moderate osteoarthrosis changes with osteoph yte formation of the acetabulum. No acute intrapelvic process. The bony structures of the pelvis are intact. The visualized knee demonstrates osteophyte formation of the tibial plateau, the patella and femoral condyles. There is joint space narrowing and subchondral sclerosis. No evidence of fracture. Total k nee arthroplasty changes of the right knee are partially visualized. Visualized ankle and feet demonstrates multifocal osteoarthrosis changes with osteophyte formation an d mild joint space narrowing. No evidence of fractures. IMPRESSION: Moderate to severe osteoarthrosis changes of the left knee.
== END | disposition home or self-care (01) ==
LOC: RADCTMAIN 10:34
PROVIDERS: ATTEND Orthopaedic Surgery
DX: M17.12 Unilateral primary osteoarthritis, left knee (principal); M25.561 Pain in right knee; Z47.1 Aftercare following joint replacement surgery; Z96.651 Presence of right artificial knee joint

== ENCOUNTER → 2023-05-03 | Outpatient (CLI) | payer MEDICARE, BC ==
[2023-05-03 11:20] LABS: INR 0.9 (<1.2); Partial Thromboplastin Time 23.2 sec (22.0-30.0); Prothrombin Time 9.9 sec (10.0-12.5)
[2023-05-03 15:13] LABS: Blood Urea Nitrogen 18.2 mg/dL (9.0-27.0); Carbon Dioxide 26.8 mmol/L (21.6-31.8); Chloride 107 mmol/L (96-109); Glucose 83 mg/dL (70-110); Potassium 4.4 mmol/L (3.5-5.5); Sodium 144 mmol/L (135-145)
[2023-05-03 15:14] LABS: ALT 16 U/L (8-44); AST 16 U/L (13-35); Albumin 4.2 g/dL (3.8-4.9); Albumin/Globulin Ratio 1.83 Ratio (1.60-3.17); Alkaline Phosphatase 84 U/L (41-126); Calcium 12.6 mg/dL (8.7-10.3); Globulin 2.3 g/dL (1.6-3.3); Total Bilirubin 0.2 mg/dL (0.3-1.2); Total Protein 6.5 g/dL (6.2-8.2)
[2023-05-03 15:35] LABS: HCT 44.7 % (37.2-46.3); HGB 13.9 g/dL (12.0-15.0); MCHC 31.1 g/dL (32.0-37.0); MCV 90.1 FL (80.0-97.0); Mean Platelet Volume 11.4 FL (9.5-12.2); NRBC Per 100 WBC 0 X 10*3/uL (0.00-0.01); Platelet Count 313 X 10*3/uL (140-440); RBC 4.96 X 10*6/uL (4.10-5.20); RDW 13.6 % (11.5-14.5); WBC 8.31 X 10*3/uL (4.50-10.00)
== END | disposition home or self-care (01) ==
LOC: LABPAT 09:45
PROVIDERS: ATTEND Orthopaedic Surgery
DX: Z01.812 Encounter for preprocedural laboratory examination (principal); Z22.322 Carrier or suspected carrier of Methicillin resistant Staphylococcus aureus; M17.12 Unilateral primary osteoarthritis, left knee
CPT/HCPCS: 36415; 80053; 85027; 85610; 85730; 87070

== ENCOUNTER 2023-05-10 11:00 | Day surgery (SDC) | payer MEDICARE, BC ==
[2023-05-03 08:24] VITALS: BMI 28.3
[~2023-05-10 11:00] MED LIST changes: -LIDOCAINE 1% (10MG/ML) FOR IV START INTRADERMA PRN; -MIDAZOLAM 2 MG/2 ML VIAL IV PRN
[2023-05-10] MEDS: LACTATED RINGERS 1,000 ML IV SCH (12:40)
[2023-05-10] MEDS ORDERED: MIDAZOLAM 2 MG/2 ML VIAL IVP ONE (13:02)
[2023-05-10] MEDS ORDERED: bisacodyL 10 MG SUPP RECTAL PRN (13:31)
[2023-05-10] MEDS ORDERED: ONDANSETRON 4 MG/2 ML VIAL IVP PRN (13:31)
[2023-05-10] MEDS ORDERED: NA PHOS,M-B/NA PHOS,DI-BA 133 ML ENEMA RECTAL PRN (13:31)
[2023-05-10] MEDS ORDERED: NALOXONE 0.4 MG/ML 1 ML VIAL IV PRN (13:31)
[2023-05-10] MEDS ORDERED: MAGNESIUM HYDROXIDE 2,400 MG/30 ML CUP PO PRN (13:31)
[2023-05-10] MEDS ORDERED: HYDROmorphone 0.5 MG/0.5 ML SYRINGE IVP PRN ×3 (13:31)
[2023-05-10] MEDS ORDERED: HYDROcodone/APAP 7.5-325MG 1 EACH TAB PO PRN (13:33)
[2023-05-10] MEDS ORDERED: ROPIVACAINE 5 MG/ML 30 ML VIAL ONE (13:54)
[2023-05-10] MEDS ORDERED: PROPOFOL 10 MG/ML 20 ML VIAL IV ONE (13:54)
[2023-05-10] MEDS ORDERED: diphenhydrAMINE 50 MG/ML 1 ML VIAL ONE (13:54)
[2023-05-10] MEDS ORDERED: DEXAMETHASONE SOD PHOSPHATE 4 MG/ML 1 ML VIAL ONE (13:54)
[2023-05-10] MEDS ORDERED: MIDAZOLAM 2 MG/2 ML VIAL ONE (13:54)
[2023-05-10] MEDS ORDERED: TRANEXAMIC 1,000 MG/100ML-NACL PREMIX BAG ONE (13:54)
[2023-05-10] MEDS ORDERED: LACTATED RINGERS 1,000 ML IV ONE (15:30)
--- NOTE | 2023-05-10 16:20 | P.OP ---
Date of Procedure: 05/10/23 Preoperative Diagnosis: 1. Severe left knee osteoarthritis Postoperative Diagnosis: Same Procedure(s) Performed: 1. Left total knee arthroplasty 2. Computer assisted musculoskeletal navigation using CT/MRI images Implants: 1. Vinay Triathlon CR Femur Size #5 2. [place] Triathlon Sturdivant Tibial Base Size #4 3. Vinay Triathlon CS/PS poly Size #9 4. [place] Triathlon all poly patella, Size #29 Anesthesia: regional, spinal Surgeon: George Saavedra Application Systems Architect #1: Claudia Mccurdy Estimated Blood Loss (ml): 100 IV fluids (ml): 900 Pathology: none sent Condition: stable Disposition: PACU Indications for Procedure: I met with the patient preoperatively in the office setting and discussed treatment of their symptomatic knee arthritis. They failed a long course of nonsurgical treatment and elected to proceed with an elective total knee replacement. I discussed the potential risks and complications at length and gave them ample time to ask questions. Risks discussed included: risks from anesthesia, superficial site surgical infection, acute and/or chronic periprosthetic joint infection, delayed wound healing, drainage, wound necrosis, instability, stiffness, stiffness requiring manipulation and/or revision surgery, damage to local blood vessels or nerves, aseptic loosening of the implants, extensor mechanism issues including disruption, patellar maltracking, avascular necrosis etc., continued or worsened knee pain, generalized dissatisfaction with surgical outcome, need for revision surgery, an inability to regain preinjury level of function, DVT, PE, other medical complications, and possibly loss of life or limb. The patient voiced their understanding that while these are the most common complications other less common complications are possible. They provided both their verbal and written consent to go forward with surgery. Operative Findings: Severe tricompartmental osteoarthritis Description of Procedure: The patient was identified in preoperative holding and the correct operative extremity was verified and marked with a marker. I reviewed the consent form with the patient at length. All of their questions were answered. The patient was given a block by anesthesia. They were then brought back to the operating room. They were transferred onto the operating room table where a general anesthetic, preoperative antibiotics, and tranexamic acid were administered by anesthesia. A tourniquet was applied to the proximal aspect of the operative extremity. The contralateral extremity was padded under the heel and secured to the operating room table with a nonsterile blue towel and tape. The ipsilateral arm was carefully draped across the patient's chest and secured with a pillow and foam. A post was applied over the lateral aspect of the ipsilateral thigh and a bolster was placed under the ipsilateral foot. I verified that the operative extremity was stable and the knee was flexed to 90. The operative extremity was then placed in a leg daniel, nonsterile drapes were applied, and the extremity was prepped and draped sterilely in the standard sterile fashion. Prior to starting surgery timeout was performed identifying the correct patient, operative extremity, and procedure. The leg was then elevated, exsanguinated with an Esmarch bandage, and the tourniquet was inflated. An anterior midline incision was made sharply with a scalpel. Once I had dissected deep to the superficial fascial layer medial and lateral flaps were elevated. A medial parapatellar arthrotomy was created. Upon opening the knee joint there were diffuse arthritic changes in all 3 compartments. The anterior horn of the medial meniscus were sharply released and a medial release was performed around the posterior medial corner of the knee to facilitate retractor placement. The fat pad was excised with electrocautery. The patella was found to be severely arthritic and a provisional cut was made with a sagittal saw to facilitate mobilization of the extensor mechanism during the procedure. Remnants of the ACL and PCL were then excised from the notch. 4 mm pins were then placed within the incision in the medial distal femur and proximal tibia. Arrays were applied to the pins and I verified they were completely tightened. The knee was then registered with the [employer] robot and manipulations in implant position were made to balance the knee and opitmize implant position. Using the Anand robotic saw all cuts were made in accordance with our plan. After all bony fragments had been removed the cuts were verified with the planar probe. The tibia was then subluxed forward and sized. The knee was brought into flexion and a lamina cleat thrower was placed to allow removal of the meniscal remnants both medially and laterally as well as posterior osteophytes. Local anesthetic was then infiltrated around the joint capsule. Trial implants were then placed within the knee. Range of motion and collateral ligament tension was then evaluated. Adjustments in implant size and position were then made accordingly. Once the knee was felt to be appropriately balanced the Anand pins were removed. The patella was then recut, sized, and punched. A trial patellar button was then placed. With the trial components in place, the patella tracked midline. The femur was then drilled and the trial component removed. The trial tibial component was then appropriately rotated, pinned, and prepared for the keel. All trial components were then removed from the knee. The knee was thoroughly irrigated with pulsatile lavage. Cement was prepared via vacuum mixing in a bowl on the back table. I then hand pressurized cement into the femur and tibia and placed the implants beginning with the tibial base tray and poly liner, femoral component, and finally the patellar button. All extruded cement was removed including from the pin sites. Once the cement had hardened the knee was evaluated one final time with the final polyethylene liner in place. The knee had full extension and flexion and felt stable to varus and valgus stress throughout the arc of motion. The tourniquet was released and with the tourniquet down the patella tracked midline. All bleeders were controlled with electrocautery. The knee was then soaked for 3 minutes with a dilute Betadine soak. The knee was thoroughly irrigated using 3 L of sterile saline and pulsatile lavage. The extensor mechanism was then reapproximated using pop off Vicryl sutures followed by a running barbed suture. The knee was then closed in layers with a 0 strata fix for the deep fascial layer, 2-0 strata fix for the superficial subcutaneous layer and Monocryl and Steri-Strips for the skin. A sterile dressing was applied. I verified that all instrument, sponge, and sharp counts were correct. The patient was then transferred off the operating room table, extubated, and brought to recovery having tolerated the procedure well. Claudia ACEVEDO was required as a skilled study assistant due to the complexity of the surgery for patient positioning, draping, exposure, placement of implants, closure of wound, and application of dressing PLAN: The patient can weight-bear as tolerated on the operative extremity. DVT prophylaxis with aspirin 81 mg twice a day based on preoperative risk stratification. Follow-up in the office in 2 weeks for wound check and x-rays of the knee including an AP and lateral.
--- NOTE | 2023-05-10 16:55 | XR ---
EXAMINATION TYPE: XR knee limited LT DATE OF EXAM: 05/10/2023 4:47 PM CLINICAL INDICATION:Female, 72 years old with history of Evaluation for Postop abnormality and alignm ent; PHH COMPARISON: None. TECHNIQUE: XR knee limited LT; examined in Frontal, lateral and oblique projections. FINDINGS: Status post total knee arthroplasty changes with hardware in appropriate alignment and in tact. No evidence of fracture. Subcutaneous lucencies and lucencies within the joint consistent with surgical changes. IMPRESSION: Status post total knee arthroplasty changes with hardware intact and appropriate alignment. No fractu res identified.
[2023-05-10] MEDS: SODIUM CHLORIDE 0.9% 1,000 ML IV SCH (18:00)
[2023-05-10] MEDS ORDERED: SENNOSIDES-DOCUSATE SODIUM 1 EACH TAB PO SCH (21:00)
[2023-05-10] MEDS: ASPIRIN 81 MG PO SCH (21:42)
[2023-05-11] MEDS: HYDROcodone/APAP 7.5-325MG 1 EACH TAB PO PRN ×2 (01:42→08:36)
[2023-05-11] MEDS: LACTATED RINGERS 1,000 ML IV SCH (06:25)
[2023-05-11] MEDS: SODIUM CHLORIDE 0.9% 1,000 ML IV SCH (06:32)
[2023-05-11] MEDS: ASPIRIN 81 MG PO SCH (08:36)
--- NOTE | 2023-05-11 08:38 | P.DS ---
Providers Date of admission: Monday05/10/2023 Attending physician: George Saavedra Consults: 05/10/23 13:31 Consult Physician Routine Consulting Provider: Josephine Gee Consult Reason/Comments: medical management Do you want consulting provider notified?: Yes Primary care physician: Ponce Bae Hospital Course: The patient was admitted under my care and underwent an uncomplicated total knee replacement. Following surgery, she was transferred to the orthopaedic floor. She had 2 doses of post-op antibiotics. She was started on aspirin for DVT prophylaxis. She worked with PT. She did well and was cleared for discharge home. Plan - Discharge Summary Discharge Rx Participant: Yes New Discharge Prescriptions: New Aspirin [Adult Low Dose Aspirin EC] 81 mg PO BID 30 Days #60 tab HYDROcodone/APAP 7.5-325MG [[place] 7.5-325] 1 - 2 tab PO Q6H PRN #32 tab PRN Reason: Pain Sennosides [Senokot] 2 tab PO DAILY PRN #60 tablet PRN Reason: Constipation Diclofenac Sodium [Voltaren] 75 mg PO BID #60 tab Omeprazole [PriLOSEC] 20 mg PO DAILY #30 cap No Action Losartan [Cozaar] 25 mg PO QAM Multivitamins, Thera [Multivitamin (formulary)] 1 tab PO QAM Discharge Medication List Losartan [Cozaar] 25 mg PO QAM 01/19/21 [History] Multivitamins, Thera [Multivitamin (formulary)] 1 tab PO QAM 05/07/21 [History] Aspirin [Adult Low Dose Aspirin EC] 81 mg PO BID 30 Days #60 tab 05/10/23 [Rx] Diclofenac Sodium [Voltaren] 75 mg PO BID #60 tab 05/10/23 [Rx] HYDROcodone/APAP 7.5-325MG [[place] 7.5-325] 1 - 2 tab PO Q6H PRN #32 tab 05/10/23 [Rx] Omeprazole [PriLOSEC] 20 mg PO DAILY #30 cap 05/10/23 [Rx] Sennosides [Senokot] 2 tab PO DAILY PRN #60 tablet 05/10/23 [Rx] Follow up Appointment(s)/Referral(s): George Saavedra MD [Medical Doctor] - 2 Weeks Activity/Diet/Wound Care/Special Instructions: 1. Weight-bear as tolerated on your operative extremity unless instructed otherwise. Use a walker or other assistive device to ambulate. 2. Leave surgical dressing in place. If your dressing becomes saturated with blood, there is drainage, or the dressing becomes loose please contact the office. 3. It is okay to shower with your surgical dressing, but do not submerge in water (no hot tubs, bath's, swimming etc.) 4. Make sure to take her blood clot prevention medication as prescribed (aspirin, Eliquis, Xarelto, and Plavix are commonly prescribed medications for blood clot prevention) 5. While taking [place] or Percocet for pain make sure you're taking a stool softener (Colace) and drink lots of water. 6. Keep all follow-up appointments as scheduled. You will usually be seen in 1-2 weeks following surgery. 7. Please contact the office with any questions or concerns [phone] Discharge Disposition: HOME WITH HOME HEALTH SERVICES
[2023-05-11] MEDS ORDERED: LOSARTAN 25 MG TAB PO SCH (09:00)
[2023-05-11] MEDS ORDERED: MULTIVITAMINS, THERA 1 EACH TAB PO SCH (09:00)
[2023-05-11 09:12] VITALS: BP 145/81; PULSE 64; RESP 12; TEMP 98.1
--- NOTE | 2023-05-11 10:39 | P.ANPRN ---
Procedure Note - Anesthesia - Nerve Block Performed Left Adductor Canal Single Time Out Performed: Yes Date of Procedure: 05/10/23 Procedure Start Time: 13:02 Procedure Stop Time: 13:08 Location of Patient: PreOp Indication: Acute Post-Operative Pain, Requested by Surgeon Sedation Type: Sedate with meaningful contact maintained Preparation: Sterile Prep Position: Supine Needle Types: Pajunk Needle Gauge: 21 Ultrasound used to visualize needle placement: Yes Ultrasound used to observe medication spread: Yes Blood Aspirated: No Pain Paresthesia on Injection Noted: No Resistance on Injection: Normal Image Stored and Saved: Yes Events: Uneventful and Well Tolerated (Ropivacaine 0.5% 20 cc plus dexamethasone 4 mg)
--- NOTE | 2023-05-11 10:40 | P.ANPRN ---
Procedure Note - Anesthesia - Nerve Block Performed Left iPack Single Time Out Performed: Yes Date of Procedure: 05/10/23 Procedure Start Time: 13:09 Procedure Stop Time: 13:12 Location of Patient: PreOp Indication: Acute Post-Operative Pain, Requested by Surgeon Sedation Type: Sedate with meaningful contact maintained Preparation: Sterile Prep Position: Supine Needle Types: Pajunk Needle Gauge: 21 Ultrasound used to visualize needle placement: Yes Ultrasound used to observe medication spread: Yes Blood Aspirated: No Pain Paresthesia on Injection Noted: No Resistance on Injection: Normal Image Stored and Saved: Yes Events: Uneventful and Well Tolerated (Ropivacaine 0.5% 20 cc plus dexamethasone 4 mg)
[2023-05-11 11:16] LABS: Basophils # (A) 0.02 X 10*3/uL (0.00-0.10); Basophils % (A) 0.1 %; Eosinophils # (A) 0 X 10*3/uL (0.04-0.35); Eosinophils % (A) 0 %; HCT 36.5 % (37.2-46.3); HGB 11.5 g/dL (12.0-15.0); Lymphocytes # (A) 1.22 X 10*3/uL (0.90-5.00); Lymphocytes % (A) 6.8 %; MCHC 31.5 g/dL (32.0-37.0); MCV 88.8 FL (80.0-97.0); Mean Platelet Volume 11.4 FL (9.5-12.2); Monocytes # (A) 0.96 X 10*3/uL (0.20-1.00); Monocytes % (A) 5.4 %; NRBC Per 100 WBC 0 X 10*3/uL (0.00-0.01); Neutrophils % (A) 87.1 %; Platelet Count 253 X 10*3/uL (140-440); RBC 4.11 X 10*6/uL (4.10-5.20); RDW 13.4 % (11.5-14.5); WBC 17.91 X 10*3/uL (4.50-10.00)
--- NOTE | 2023-05-11 13:06 | P.CONS ---
History of Present Illness - Reason for Consult Consult date: 05/11/23 Medical management - History of Present Illness History of present illness; patient is a 72-year-old lady with past medical history significant for osteoarthritis, recent right total knee arthroplasty pe rformed on 02/08/23 who presented to the hospital for elective left total knee arthroplasty. Patient was being seen outpatient by orthopedics, continues to have left knee pain for which she was scheduled for this procedure. Postoperatively internal medicine team were consulted for medical management REVIEW OF SYSTEMS: CONSTITUTIONAL: No fever, no malaise, no fatigue. HEENT: No recent visual problems or hearing problems. Denied any sore throat. CARDIOVASCULAR: No chest pain, orthopnea, PND, no palpitations, no syncope. PULMONARY: No shortness of breath, no cough, no hemoptysis. GASTROINTESTINAL: No diarrhea, no nausea, no vomiting, no abdominal pain. NEUROLOGICAL: No headaches, no weakness, no numbness. HEMATOLOGICAL: Denies any bleeding or petechiae. GENITOURINARY: Denies any burning micturition, frequency, or urgency. MUSCULOSKELETAL/RHEUMATOLOGICAL: Left knee pain ENDOCRINE: Denies any polyuria or polydipsia. The rest of the 14-point review of systems is negative. PHYSICAL EXAMINATION: GENERAL: The patient is alert and oriented x3, not in any acute distress. Well developed, well nourished. HEENT: Pupils are round and equally reacting to light. EOMI. No scleral icterus. No conjunctival pallor. Normocephalic, atraumatic. No pharyngeal erythema. No thyromegaly. CARDIOVASCULAR: S1 and S2 present. No murmurs, rubs, or gallops. PULMONARY: Chest is clear to auscultation, no wheezing or crackles. ABDOMEN: Soft, nontender, nondistended, normoactive bowel sounds. No palpable organomegaly. MUSCULOSKELETAL: Left knee surgical incision seen EXTREMITIES: No cyanosis, clubbing, or pedal edema. NEUROLOGICAL: Gross neurological examination did not reveal any focal deficits. SKIN: No rashes. Assessment and plan Left knee osteoarthritis status post left total knee arthroplasty Hypertension History of right total knee arthroplasty Monitor vital signs Encourage use of I-S Continue pain management per orthopedics Continue DVT prophylaxis per orthopedics Resume home meds PT and OT consulted Labs and medication were reviewed.. Continue same treatment. Continue with symptomatic treatment. Resume home medication. Monitor labs and vitals. DVT and GI prophylaxis. Further recommendations as per clinical course of the pa loulou Dictation was produced using [employer] dictation software. please excuse any grammatical, word or spelling errors. Past Medical History Past Medical History: Hypertension, Osteoarthritis (OA) Additional Past Medical History / Comment(s): OA lt knee History of Any Multi-Drug Resistant Organisms: None Reported Past Surgical History: Orthopedic Surgery Additional Past Surgical History / Comment(s): Rt total knee arthroplasty Jan 2023,Injection to right knee 2015 broken wrist D&C 1969, left knee replacement 05/10/23 Past Anesthesia/Blood Transfusion Reactions: Motion Sickness, Postoperative Nausea & Vomiting (PONV) Additional Past Anesthesia/Blood Transfusion Reaction / Comm: "major nausea and vomitng". No hx of blood transfusion. Past Psychological History: No Psychological Hx Reported Smoking Status: Never smoker Past Alcohol Use History: Rare Past Drug Use History: None Reported - Past Family History Father Family Medical History: No Reported History Mother Family Medical History: CVA/TIA, Osteoarthritis (OA) Medications and Allergies Home Medications Medication Instructions Recorded Confirmed Type Losartan [Cozaar] 25 mg PO QAM 01/19/21 05/03/23 History Multivitamins, Thera [Multivitamin 1 tab PO QAM 05/07/21 05/03/23 History (formulary)] Aspirin [Adult Low Dose Aspirin EC] 81 mg PO BID 30 Days #60 tab 05/10/23 Rx Diclofenac Sodium [Voltaren] 75 mg PO BID #60 tab 05/10/23 Rx HYDROcodone/APAP 7.5-325MG [[place] 1 - 2 tab PO Q6H PRN #32 tab 05/10/23 Rx 7.5-325] Omeprazole [PriLOSEC] 20 mg PO DAILY #30 cap 05/10/23 Rx Sennosides [Senokot] 2 tab PO DAILY PRN #60 tablet 05/10/23 Rx Allergies Allergy/AdvReac Type Severity Reaction Status Date / Time No Known Allergies Allergy Verified 05/10/23 12:01 Physical Exam Vitals: Vital Signs Temp Pulse Pulse Resp BP Pulse Ox 05/11/23 08:00 98.1 F 64 12 145/81 87 L 05/11/23 00:31 97.7 F 76 17 155/83 96 05/10/23 20:31 97.8 F 72 16 150/83 96 05/10/23 17:13 67 16 130/72 96 05/10/23 16:58 71 16 134/69 95 05/10/23 16:43 69 16 122/67 99 05/10/23 16:28 67 16 152/70 98 05/10/23 16:13 97.8 F 70 17 135/72 96 05/10/23 13:16 69 16 178/92 98 05/10/23 12:10 97.8 F 72 16 200/98 97 Intake and Output 05/10/23 05/11/23 05/11/23 22:59 06:59 14:59 Intake Total 700 120 Output Total 400 900 Balance 300 -900 120 Intake: IV 700 Oral 120 Output: Urine 300 900 Estimated Blood Loss 100 Other: Voiding Method Toilet Toilet Weight 77.2 kg Results CBC & Chem 7: 05/11/23 06:04 Labs: Abnormal Lab Results - Last 24 Hours (Table) 05/11/23 Range/Units 06:04 WBC 17.91 H (4.50-10.00) X 10*3/uL Hgb 11.5 L (12.0-15.0) g/dL Hct 36.5 L (37.2-46.3) % MCHC 31.5 L (32.0-37.0) g/dL Immature Gran # 0.11 H (0.00-0.04) X 10*3/uL Neutrophils # 15.60 H (1.80-7.70) X 10*3/uL Eosinophils # 0 L (0.04-0.35) X 10*3/uL
== END 2023-05-11 13:13 | disposition home health service (06) ==
LOC: OR 11:00 → 4SSUR 16:46 → OR 05-11 13:13
PROVIDERS: ATTEND Orthopaedic Surgery
DX: M17.12 Unilateral primary osteoarthritis, left knee (principal); I10 Essential (primary) hypertension; Z79.82 Long term (current) use of aspirin; Z79.899 Other long term (current) drug therapy
CPT/HCPCS: 0055T; 27447; 64447; 64999; 85025